=== PATIENT | female | born 1960 | race Caucasian/White ===

== ENCOUNTER 2018-12-15 15:18 | Inpatient (IN) | payer MEDICARE, OTHER ==
[~2018-12-15] VITALS: Ht 172.7 cm; Wt 89.8 kg
[2018-12-15] MEDS ORDERED: HYDR-3028 PO (15:59)
[2018-12-15] MEDS ORDERED: LEVE500T9 PO (15:59)
[2018-12-15] MEDS ORDERED: OXCA300T4 PO (15:59)
[2018-12-15] MEDS ORDERED: CARI1.5C PO (16:00)
[2018-12-15] MEDS ORDERED: LAMO200T2 PO (16:00)
[2018-12-15] MEDS ORDERED: LITH150C PO (16:00)
[2018-12-15] MEDS ORDERED: LAMO150T PO (16:00)
[2018-12-15] MEDS ORDERED: ZIPR20CA2 PO (16:00)
[2018-12-15] MEDS ORDERED: PERP4TAB11 PO (16:00)
[2018-12-15 16:39] VITALS: BP 101/57
[2018-12-15] MEDS ORDERED: MAG HYDROX/AL HYDROX/SIMETH 30 ML UDC PO PRN (17:00)
[2018-12-15] MEDS ORDERED: BLOOD SUGAR DIAGNOSTIC 1 EACH STRIP IN ONE (17:00)
[2018-12-15] MEDS ORDERED: ACETAMINOPHEN 325 MG TABLET PO PRN (17:00)
[2018-12-15] MEDS ORDERED: MAGNESIUM HYDROXIDE 30 ML UDC PO PRN (17:00)
[2018-12-15 18:17] VITALS: BP 124/87
--- NOTE | 2018-12-15 18:19 | NUR ---
GPS/RN-NOTES ADMITTED 58 YEARS OLD FEMALE PATIENT FROM [facility]. DR. 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 PATIENT ON 5150 HOLD FOR GD ADULT. UNABLE TO DO FACE TO FACE ASSESSMENT DUE TO PATIENT WAS TOO SLEEPY AND REFUSED TO ANSWER SOME QUESTIONS. STATED" LEAVE ME ALONE LET ME SLEEP ,I'M TOO TIRED". PATIENT A/O X4 AMBULATORY WITH ASSISTANCE.HOLD WAS UNABLE TO VERIFY WITH THE PATIENT DUE TO HER BEHAVIOR AT THIS TIME. PATIENT'S RIGHT WAS GIVEN TO THE PATIENT. FULL BODY ASSESSMENT AND MRSA SWAB NOT DONE DUE TO PATIENT REFUSED AND UNCOOPERATIVE DURING ADMISSION PROCESS. PATIENT REFUSED TO SIGN ADMISSION PAPERS. NO FAMILY TO NOTIFY ON THE ADMISSION. WILL ENDORSE TO INCOMING NURSE FOR CONTINUITY OF THE ADMISSION PROCESS AND CARE.
[2018-12-15] MEDS: OXCARBAZEPINE 150 MG TABLET PO SCH (18:30)
[2018-12-15] MEDS: LEVETIRACETAM (250 MG) 250 MG TABLET PO SCH ×2 (18:30→21:33)
--- NOTE | 2018-12-15 18:51 | NUR ---
GPS/RN-NOTES PATIENT REFUSED KEPPRA 500MG P.O AND TRILEPTAL 300MG P.O DESPITE EXPLANATIONS RISK AND BENEFITS. STATED" I DON'T TAKE THOSE MEDICATIONS". OFFERED X3 STILL REFUSED .CHARGE NURSE AWARE.
--- NOTE | 2018-12-15 19:25 | NUR ---
GPS/RN-NOTES PATIENT REFUSED PICTURES AND REFUSED BLOOD SUGAR CHECK DESPITE EXPLANATIONS RISK AND BENEFITS. PATIENT GETS ANGRY AND ARGUMENTATIVE.
--- NOTE | 2018-12-15 19:30 | NUR ---
GPS RN NOTES RECEIVED RESTING COMFORTABLY ON BED,ALERT,ORIENTED X1-2,ABLE TO VERBALIZED.NEW ADMIT FROM [facility],DX PSYCHOSIS/DEPRESSION.NOTED LIMITED VERBAL RESPONSE.ATTEMPT BODY CHECK BUT STILL REFUSED.WILL CONTINUE TO MONITOR BEHAVIOR AND MANAGE ACCORDINGLY.
[2018-12-15 20:00] VITALS: BP 130/57
[2018-12-15 20:53] VITALS: BP 130/57
[2018-12-15] MEDS: LamoTRIgine 100 MG TABLET PO SCH (21:33)
--- NOTE | 2018-12-16 06:00 | NUR ---
GPS RN NOTES HAD SHOWER THIS TIME,WITH STANDBY ESCORT OUTSIDE.SLEPT WELL AT NIGHT.
[2018-12-16 07:12] LABS: ALBUMIN 3.3 g/dL (3.4-5.0); BILIRUBIN,TOTAL 0.2 mg/dL (0.2-1.0); CALCIUM, SERUM 9.7 mg/dL (8.5-10.1); POTASSIUM 4.1 mmol/L (3.5-5.1); TOTAL PROTEIN, SERUM 6.5 g/dL (6.4-8.2)
[2018-12-16 07:14] LABS: CHOLESTEROL 183 mg/dL (<200); HDL CHOLESTEROL 50 mg/dL (40-60); LDL 117 mg/dL (0-99); TRIGLYCERIDES 124 mg/dL (30-150)
[2018-12-16 08:00] VITALS: BP 147/84
--- NOTE | 2018-12-16 08:15 | NUR ---
GPS/RN SPOKE WITH CORRIE FROM PHARM AND NOTIFIED PATIENT TRILEPTAL DOSE IS NOT COMPLETE IN OMNICELL AND TO REFILL THE MEDICATION PLEASE, PER DOROTEOHI WILL DO.
[2018-12-16] MEDS: LEVETIRACETAM (250 MG) 250 MG TABLET PO SCH ×2 (08:47→21:27)
[2018-12-16] MEDS: LamoTRIgine 25 MG TABLET PO SCH (08:47)
[2018-12-16] MEDS: OXCARBAZEPINE 150 MG TABLET PO SCH ×4 (09:00→16:34)
--- NOTE | 2018-12-16 09:57 | NUR ---
GPS/RN SPOKE WITH STEPHEN FROM PHARM AND REMINDED HER REGARDING PATIENT TRILEPTAL DUE AT 0900 AND STILL NOT REFILLED IN OMNICELL. PER STEPHEN SHE WILL SEND THE TECH UP TO REFILL.
--- NOTE | 2018-12-16 10:27 | NUR ---
GPS/RN PATIENT REFUSED 0900 TRILEPTAL DOSE, OFFERED X 3 WITH RISKS AND BENEFITS EXPLAINED CONTINUE TO REFUSE, PER PATIENT IT MAKES HER SUICIDAL AND SHE DOES NOT WANT TO TAKE IT ANYMORE. NOTIFIED.
[2018-12-16] MEDS: ESCITALOPRAM OXALATE (10 MG) 10 MG TABLET PO SCH ×2 (10:30→11:57)
--- NOTE | 2018-12-16 12:05 | NUR ---
GPS/RN PATIENT REFUSED LEXAPRO 10MG TAB PO OFFERED X 3 WITH RISKS AND BENEFITS EXPLAINED CONTINUE TO REFUSE.
--- NOTE | 2018-12-16 15:50 | NUR ---
GPS/RN SPOKE WITH DR ORTIZ AND NOTIFIED PATIENT REFUSED EKG TO BE DONE, OFFERED X 3 WITH RISKS AND BENEFITS EXPLAINED CONTINUE TO REFUSE AND ALSO MADE SURE WITH DR ORTIZ IF OKAY TO GIVE GEODON, PER DR ORTIZ OK TO GIVE GEODON.
[2018-12-16 16:00] VITALS: BP 162/95
[2018-12-16] MEDS: ZIPRASIDONE 20 MG CAPSULE PO SCH (16:30)
[2018-12-16] MEDS: LORAZEPAM 0.5 MG TABLET PO PRN (19:49)
--- NOTE | 2018-12-16 19:52 | NUR ---
GPS RN NOTES: PT. VERY AGGRESSIVE, ANXIOUS , HYPERVERBAL, YELLING ,SCREAMING ,NOT FOLLOWING ANY REDIRECTIONS ,PACING IN ROOM HALLWAY ATIVAN 1 MG PO PRN GIVEN , WILL CONTINUE TO MONITOR.
[2018-12-16 20:30] VITALS: BP 155/86
[2018-12-16] MEDS: LITHIUM CARBONATE (300 MG CAP) 300 MG CAPSULE PO SCH (21:00)
[2018-12-16] MEDS: LamoTRIgine 100 MG TABLET PO SCH (21:28)
--- NOTE | 2018-12-16 22:00 | NUR ---
GPS RN NOTES: PT. REFUSED NIGHT MEDS LITIHUM 300 MG PO, ENCOURAGED X 3 EXPLINED RISKS AND BENEFITS , PT. STRONGLY REFUSED, PER PT. I DON'T WANTS TAKING THIS MEDS.
[2018-12-17 08:00] VITALS: BP 138/76
[2018-12-17] MEDS: ZIPRASIDONE 20 MG CAPSULE PO SCH ×2 (08:22→16:53)
[2018-12-17] MEDS: LEVETIRACETAM (250 MG) 250 MG TABLET PO SCH ×2 (08:22→21:09)
[2018-12-17] MEDS: LamoTRIgine 25 MG TABLET PO SCH (08:23)
[2018-12-17] MEDS: ESCITALOPRAM OXALATE (10 MG) 10 MG TABLET PO SCH (08:33)
[2018-12-17] MEDS: OXCARBAZEPINE 150 MG TABLET PO SCH ×2 (08:34→16:58)
[2018-12-17] MEDS: LITHIUM CARBONATE (300 MG CAP) 300 MG CAPSULE PO SCH ×2 (08:34→21:00)
[2018-12-17] MEDS: MENTHOL/CETYLPYRD (CEPACOL) 1 LOZ LOZENGE PO PRN ×3 (15:27→19:45)
[2018-12-17 16:00] VITALS: BP 141/91
[2018-12-17] MEDS: PROPRANOLOL HCL 10 MG TABLET PO SCH (16:53)
[2018-12-17 20:00] VITALS: BP 133/75
[2018-12-17] MEDS: LamoTRIgine 100 MG TABLET PO SCH (21:09)
[2018-12-18 08:00] VITALS: BP 148/92
[2018-12-18] MEDS: LEVETIRACETAM (250 MG) 250 MG TABLET PO SCH ×2 (08:41→21:25)
[2018-12-18] MEDS: ZIPRASIDONE 20 MG CAPSULE PO SCH ×2 (08:41→16:51)
[2018-12-18] MEDS: LamoTRIgine 25 MG TABLET PO SCH (08:41)
[2018-12-18] MEDS: PROPRANOLOL HCL 10 MG TABLET PO SCH ×3 (08:42→16:50)
[2018-12-18] MEDS: ESCITALOPRAM OXALATE (10 MG) 10 MG TABLET PO SCH (08:45)
[2018-12-18] MEDS: LITHIUM CARBONATE (300 MG CAP) 300 MG CAPSULE PO SCH ×2 (08:45→21:26)
[2018-12-18] MEDS: OXCARBAZEPINE 150 MG TABLET PO SCH ×2 (08:46→16:51)
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
[2018-12-18 16:00] VITALS: BP 142/96
[2018-12-18 20:16] VITALS: BP 143/90
[2018-12-18] MEDS: LamoTRIgine 100 MG TABLET PO SCH (21:26)
[2018-12-19 08:00] VITALS: BP 151/89
[2018-12-19] MEDS: PROPRANOLOL HCL 10 MG TABLET PO SCH ×3 (08:46→16:50)
[2018-12-19] MEDS: ZIPRASIDONE 20 MG CAPSULE PO SCH ×2 (08:46→16:50)
[2018-12-19] MEDS: LEVETIRACETAM (250 MG) 250 MG TABLET PO SCH ×2 (08:47→21:13)
[2018-12-19] MEDS: OXCARBAZEPINE 150 MG TABLET PO SCH ×2 (08:47→16:50)
[2018-12-19] MEDS: ESCITALOPRAM OXALATE (10 MG) 10 MG TABLET PO SCH (08:47)
[2018-12-19] MEDS: LamoTRIgine 25 MG TABLET PO SCH (08:47)
[2018-12-19] MEDS: LITHIUM CARBONATE (300 MG CAP) 300 MG CAPSULE PO SCH ×2 (08:47→21:13)
--- NOTE | 2018-12-19 10:52 | NUR ---
INITIAL DISCHARGE PLAN: The pt. is currently experiencing homelessness and stated that she would like assistance with getting places at [facility]. [[address] [address]; [phone]] or [facility] [[address] [place] [address]; [phone]]. CARA will help form a safe and proper discharge in collaboration with
--- NOTE | 2018-12-19 13:50 | NUR ---
RN NOTE: PATIENT STATED THAT SHE HAD BEEN TAKING PROPRANOLOL FOR HER HEART AND LAMICTAL FOR SEIZURES FOR ABOUT 7 YEARS NOW.
--- NOTE | 2018-12-19 14:49 | NUR ---
RN NOTE: IN THE MORNING AFTER THE PATIENT HAD TAKEN HER LITHIUM, PATIENT STATED THAT SHE THINKS SHE GOT A REACTION FROM THE MEDICATION. I NOTICED MINOR REDNESS ON HER LEFT ARM. INFORMED DR ORTIZ AND CHUCK WEBB ABOUT IT. WHEN CHUCK WEBB WENT TO ASSESS PATIENT, HE STATED IT DOES NOT LOOK LIKE A REACTION. LATER, PATIENT KEPT COMPLAINING THAT SHE HAD STOMACH PAIN AND WAS DIZZY AND NAUSEOUS. I CHECKED THE PATIENT'S VITALS WITH THE CN AND VSS. PATIENT STATED THAT ALL THIS IS BECAUSE SHE IS TAKING LITHIUM. I TOLD HER IF THE LITHIUM IS MAKING HER SICK, TO REFUSE THE MEDICATION AND I WILL ALSO INFORM THE DOCTOR. PATIENT TOLD ME THAT IM NOT THE DOCTOR AND I CANT MAKE THAT CALL AND SHE WILL CONTINUE TO TAKE LITHIUM EVEN IF IT MAKES HER SICK.
[2018-12-19 16:00] VITALS: BP 148/92
[2018-12-19 20:04] VITALS: BP 100/52
[2018-12-19] MEDS: LamoTRIgine 100 MG TABLET PO SCH (21:13)
[2018-12-20 08:00] VITALS: BP 123/65
[2018-12-20] MEDS: LEVETIRACETAM (250 MG) 250 MG TABLET PO SCH ×2 (08:20→21:39)
[2018-12-20] MEDS: LITHIUM CARBONATE (300 MG CAP) 300 MG CAPSULE PO SCH ×2 (08:20→21:39)
[2018-12-20] MEDS: MENTHOL/CETYLPYRD (CEPACOL) 1 LOZ LOZENGE PO PRN (08:20)
[2018-12-20] MEDS: OXCARBAZEPINE 150 MG TABLET PO SCH ×2 (08:21→16:37)
[2018-12-20] MEDS: PROPRANOLOL HCL 10 MG TABLET PO SCH ×3 (08:21→16:39)
[2018-12-20] MEDS: ESCITALOPRAM OXALATE (10 MG) 10 MG TABLET PO SCH (08:21)
[2018-12-20] MEDS: LamoTRIgine 100 MG TABLET PO SCH ×2 (08:22→21:39)
[2018-12-20] MEDS: ZIPRASIDONE 20 MG CAPSULE PO SCH ×2 (08:22→16:37)
--- NOTE | 2018-12-20 15:03 | NUR ---
SW called at [facility] [[address] [address]; [phone]] and left a voicemail stating that the SW would like to connect the pt to their services and asked for a call back.
--- NOTE | 2018-12-20 15:04 | NUR ---
SW called [facility] [[address], [place] [address]; [phone]] and left a voicemail stating that the SW would like to have the pt get connected to their services and stated that a referral will be faxed over.
--- NOTE | 2018-12-20 15:17 | NUR ---
CARA faxed a referral to [facility] to the fax number: [phone].
[2018-12-20 21:45] VITALS: BP 124/70
[2018-12-21] MEDS: ZIPRASIDONE 20 MG CAPSULE PO SCH ×2 (08:47→16:18)
[2018-12-21] MEDS: ESCITALOPRAM OXALATE (10 MG) 10 MG TABLET PO SCH (08:48)
[2018-12-21] MEDS: LITHIUM CARBONATE (300 MG CAP) 300 MG CAPSULE PO SCH ×3 (08:48→16:17)
[2018-12-21] MEDS: LEVETIRACETAM (250 MG) 250 MG TABLET PO SCH ×2 (08:49→20:19)
[2018-12-21] MEDS: OXCARBAZEPINE 150 MG TABLET PO SCH ×2 (08:50→16:17)
[2018-12-21] MEDS: PROPRANOLOL HCL 10 MG TABLET PO SCH ×3 (08:50→16:19)
[2018-12-21] MEDS: LamoTRIgine 100 MG TABLET PO SCH ×2 (08:51→21:05)
[2018-12-21 09:15] VITALS: BP 128/84
--- NOTE | 2018-12-21 09:42 | NUR ---
CARA called [facility] ([phone]) and was told by Mini that they are at full capacity at the time and that they do not have any openings and the pt does not have an assessment at 8AM the following morning.
--- NOTE | 2018-12-21 09:43 | NUR ---
CARA called [facility] ([phone]) and left a voicemail message stating that the SW would like to inquire about the admissions process for one of her patients.
--- NOTE | 2018-12-21 09:44 | NUR ---
CARA called [facility] [[address], [place] [address]; [phone]] and was told that the referral was sent to the telephonic case manager of the facility and that he would review it and give the SW a call back.
--- NOTE | 2018-12-21 09:46 | NUR ---
CARA conducted a substance abuse intervention for the pt due to her history of alcohol abuse.
--- NOTE | 2018-12-21 09:46 | NUR ---
CARA called the [facility] ([phone]) and left a message stating that the would like more information regarding their admissions process and would like a call back.
--- NOTE | 2018-12-21 09:48 | NUR ---
CARA called [facility] ([phone]) and spoke to Vicki Paz who stated that she can help connect the pt to a resource such as the [facility] who can assess the pt and connect her to services. She stated that the [facility] Access Line Number is [phone].
[2018-12-21] MEDS: POLYETHYLENE GLYCOL 3350 17 GM POWD.PACK PO PRN (12:52)
--- NOTE | 2018-12-21 12:52 | NUR ---
RN NOTE: PATIENT C/O CONSTIPATION, PRN MIRALAX GIVEN
--- NOTE | 2018-12-21 14:29 | NUR ---
GROUP NOTE Goal: Patient will attend group being held today from 11AM-11:45AM in the activities room and participate and/or actively listen to peers and be respectful. Intervention: SW invited patient to attend group session with peers regarding their support system. SW respected patient�s self-determination and will continue to invite patient to group. Response: Patient presented laying on her bed and speaking on the phone. Patient declined to participate in today�s group social secretary session, stating, "I don't want to go, I'm on the phone". Plan: Patient will be invited to attend next social secretary group session held.
[2018-12-21 16:00] VITALS: BP 109/53
[2018-12-21 20:22] VITALS: BP 95/70
[2018-12-22] MEDS: ZOLPIDEM TARTRATE 5 MG TABLET PO PRN ×2 (01:00→21:39)
[2018-12-22 08:00] VITALS: BP 128/60
[2018-12-22] MEDS: LITHIUM CARBONATE (300 MG CAP) 300 MG CAPSULE PO SCH ×3 (08:11→16:03)
[2018-12-22] MEDS: ESCITALOPRAM OXALATE (10 MG) 10 MG TABLET PO SCH (08:11)
[2018-12-22] MEDS: ZIPRASIDONE 20 MG CAPSULE PO SCH ×2 (08:11→16:03)
[2018-12-22] MEDS: OXCARBAZEPINE 150 MG TABLET PO SCH ×2 (08:12→16:03)
[2018-12-22] MEDS: LamoTRIgine 100 MG TABLET PO SCH ×2 (08:12→21:39)
[2018-12-22] MEDS: LEVETIRACETAM (250 MG) 250 MG TABLET PO SCH ×2 (08:12→21:38)
[2018-12-22] MEDS: PROPRANOLOL HCL 10 MG TABLET PO SCH ×3 (08:13→16:03)
--- NOTE | 2018-12-22 10:39 | NUR ---
CARA called [facility] ([phone]) and spoke to Nini who stated that the pts referral form is currently being reviewed at this time.
[2018-12-22 16:00] VITALS: BP 149/70
[2018-12-22 20:00] VITALS: BP 126/73
[2018-12-23 08:00] VITALS: BP 125/80
[2018-12-23] MEDS: PROPRANOLOL HCL 10 MG TABLET PO SCH ×3 (09:00→17:00)
[2018-12-23] MEDS: OXCARBAZEPINE 150 MG TABLET PO SCH ×2 (09:01→17:05)
[2018-12-23] MEDS: ESCITALOPRAM OXALATE (10 MG) 10 MG TABLET PO SCH (09:01)
[2018-12-23] MEDS: POLYETHYLENE GLYCOL 3350 17 GM POWD.PACK PO PRN (09:01)
[2018-12-23] MEDS: ZIPRASIDONE 20 MG CAPSULE PO SCH ×2 (09:01→17:02)
[2018-12-23] MEDS: LITHIUM CARBONATE (300 MG CAP) 300 MG CAPSULE PO SCH ×3 (09:01→17:02)
[2018-12-23] MEDS: LamoTRIgine 100 MG TABLET PO SCH ×2 (09:02→21:30)
[2018-12-23] MEDS: LEVETIRACETAM (250 MG) 250 MG TABLET PO SCH ×2 (09:02→21:30)
--- NOTE | 2018-12-23 12:05 | NUR ---
CARA called Candelaria Xiong ([phone]), [facility], and informed her that the pt will be discharged as soon as transportation is available and that the pt will need [facility] placement in [place].
--- NOTE | 2018-12-23 15:25 | NUR ---
Candelaria Xiong ([phone]), [facility], called the SW and stated that the pt cannot be placed in a fdc because she is banned from one of them and the other one does not have a bed. She stated that the SW should call the [facility] and they can send a referral for the pt to [place] for dual diagnosis.
--- NOTE | 2018-12-23 15:26 | NUR ---
SW called [facility] and spoke to Luis ([phone]) and stated that she would like to refer a pt. Luis stated that the SW would have to fill out the referral and send it back.
[2018-12-23 16:00] VITALS: BP 130/77
--- NOTE | 2018-12-23 16:06 | NUR ---
CARA sent a fax to [facility] to the fax number: [phone].
[2018-12-23 20:00] VITALS: BP 137/80
[2018-12-23] MEDS: MENTHOL/CETYLPYRD (CEPACOL) 1 LOZ LOZENGE PO PRN (21:30)
[2018-12-24 08:00] VITALS: BP 141/77
[2018-12-24] MEDS: LITHIUM CARBONATE (300 MG CAP) 300 MG CAPSULE PO SCH ×3 (09:17→17:55)
[2018-12-24] MEDS: ESCITALOPRAM OXALATE (10 MG) 10 MG TABLET PO SCH (09:18)
[2018-12-24] MEDS: PROPRANOLOL HCL 10 MG TABLET PO SCH ×3 (09:18→17:00)
[2018-12-24] MEDS: LamoTRIgine 100 MG TABLET PO SCH ×2 (09:18→21:12)
[2018-12-24] MEDS: OXCARBAZEPINE 150 MG TABLET PO SCH ×2 (09:19→17:55)
[2018-12-24] MEDS: LEVETIRACETAM (250 MG) 250 MG TABLET PO SCH ×2 (09:19→21:12)
[2018-12-24] MEDS: ZIPRASIDONE 20 MG CAPSULE PO SCH ×2 (09:19→17:54)
[2018-12-24] MEDS: MENTHOL/CETYLPYRD (CEPACOL) 1 LOZ LOZENGE PO PRN (10:45)
--- NOTE | 2018-12-24 10:48 | NUR ---
GIVEN CEPACOL FOR COUGH.
--- NOTE | 2018-12-24 11:37 | NUR ---
PT. REQUESTING TYLENOL FOR STUFFY HEAD.
[2018-12-24] MEDS: LORAZEPAM 0.5 MG TABLET PO PRN (14:24)
--- NOTE | 2018-12-24 14:43 | NUR ---
GIVEN ATIVAN FOR NERVES.
[2018-12-24] MEDS ORDERED: SALINE NASAL SPRAY 0.65% 1 BOTTLE BOTTLE NS PRN (15:00)
[2018-12-24 16:00] VITALS: BP 111/69
--- NOTE | 2018-12-24 16:07 | NUR ---
OCEAN NASAL SPRAY INSTILLED.
--- NOTE | 2018-12-24 17:56 | NUR ---
INDERAL HELD PULSE 53.
--- NOTE | 2018-12-24 19:25 | NUR ---
RN INITIAL NOTES: RECEIVED REPORT FROM ASHLEIGH Alexandra RN. PT IN BED, SLEEPING, APPEARS CALM AND COMFORTABLE. AROUSES TO TACTILE STIMULI. WOKE UP, A/O X 3, MEDICATION COMPLIANT PER REPORT. CONTINENT, AMBULATORY, SELF CARE, DISORGANIZED, REFUSED SKIN CHECK. PER REPORT, PT FEELING ANNOYED BECAUSE OF NO TRANSPORTATION TO [facility] UPON GOING HOME. PT DENIES ANY SI/HI. SAFETY PRECAUTIONS FOR FALL INITIATED, SIDE RAILS UP X2 FOR SAFETY, WILL CONTINUE MONITORING PT [id number] FOR SAFETY AND ANY CHANGES IN BEHAVIOR.
[2018-12-24 20:00] VITALS: BP 120/72
[2018-12-25 08:00] VITALS: BP 109/69
[2018-12-25] MEDS: PROPRANOLOL HCL 10 MG TABLET PO SCH ×3 (09:00→17:04)
[2018-12-25] MEDS: LEVETIRACETAM (250 MG) 250 MG TABLET PO SCH ×2 (09:23→20:21)
[2018-12-25] MEDS: OXCARBAZEPINE 150 MG TABLET PO SCH ×2 (09:23→17:04)
[2018-12-25] MEDS: LITHIUM CARBONATE (300 MG CAP) 300 MG CAPSULE PO SCH ×3 (09:24→17:04)
[2018-12-25] MEDS: ZIPRASIDONE 20 MG CAPSULE PO SCH ×2 (09:24→17:03)
[2018-12-25] MEDS: ESCITALOPRAM OXALATE (10 MG) 10 MG TABLET PO SCH (09:24)
[2018-12-25] MEDS: LamoTRIgine 100 MG TABLET PO SCH ×2 (09:24→21:28)
[2018-12-25 16:00] VITALS: BP 100/60
[2018-12-25 20:00] VITALS: BP 119/62
[2018-12-25] MEDS: LORAZEPAM 0.5 MG TABLET PO PRN (20:22)
[2018-12-26 08:00] VITALS: BP 107/64
[2018-12-26] MEDS: ESCITALOPRAM OXALATE (10 MG) 10 MG TABLET PO SCH (08:40)
[2018-12-26] MEDS: LamoTRIgine 100 MG TABLET PO SCH (08:40)
[2018-12-26 08:41] VITALS: BP 107/64
[2018-12-26] MEDS: LITHIUM CARBONATE (300 MG CAP) 300 MG CAPSULE PO SCH (08:41)
[2018-12-26] MEDS: PROPRANOLOL HCL 10 MG TABLET PO SCH (08:41)
[2018-12-26] MEDS: ZIPRASIDONE 20 MG CAPSULE PO SCH (08:41)
[2018-12-26] MEDS: LEVETIRACETAM (250 MG) 250 MG TABLET PO SCH (08:41)
[2018-12-26] MEDS: OXCARBAZEPINE 150 MG TABLET PO SCH (08:41)
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
--- NOTE | 2018-12-26 10:50 | NUR ---
CARA called [facility] [place] located at [address] [place] [address]; and reserved a room for the pt.
--- NOTE | 2018-12-26 10:55 | NUR ---
CARA called Dr. Simone Zimmerman ([phone]) and arranged an appointment for the pt on 12/28/18 at 11AM.
--- NOTE | 2018-12-26 12:28 | NUR ---
GPS RN NOTES PATIENT FOR DISCHARGE TODAY. TO DISCHARGE HOME TO A HOTEL AT [facility] PER . DISCHARGE TEACHING AND INSTRUCTIONS PROVIDED TO PATIENT AND VERBALIZED UNDERSTANDING. ALL BELONGINGS GIVEN TO PATIENT, NO REPORT OF MISSING INVENTORY. WRITTEN PRESCRIPTIONS PROVIDED TO PATIENT. PATIENT MADE AWARE OF FOLLOW-UP APPOINTMENTS AND PHYSICIAN INFORMATION. PATIENT LEFT UNIT AMBULATORY IN STABLE CONDITION. NO ACUTE DISTRESS. NO CHANGES IN LOC NOTED. DENIES ANY PAIN OR DISCOMFORT. NO NEW SKIN BREAKDOWN NOTED ON DISCHARGE. PATIENT ACCOMPANIED BY NURSING STAFF TO PARKING LOT. LEFT HOSPITAL PREMISES VIA TAXI. MD AWARE OF DISCHARGE.
--- NOTE | 2018-12-26 13:59 | NUR ---
Discharge Note: Pt was discharged to [place] [address] in [facility] located at [address] [place] [address] and pt was placed on a waiting list for a homeless assisted per [facility]. Pt was provided with a taxi voucher to the [facility] [employer] located at [address] [place] [address] and was discharged at 12:30pm. Upon discharge, the pt appeared to be in a euthymic mood and presented with a calm affect. Pt denied both suicidal and homicidal ideation as well as auditory and visual hallucinations. Pt was provided with three substance abuse referrals that are listed below. Pt will continue to be under the care of her psychiatrist, Dr. Simone Zimmerman, located at [address] [place] [address]; ([phone]); a fax of records was sent to: [phone]. Pt has an appointment on 12/28/18 at 11AM. Pt will also continue to be under the care of her third rigger, Dr. Young, located at [address] [place] [address]; ([phone]). [facility]errals: [facility] [place] [address] [place] [address] [facility] [address], [place] [address] [facility] [address], [place] [address]
== END 2018-12-26 12:30 | disposition home or self-care (01) | DRG 885 ==
LOC: GPS 15:18
PROVIDERS: ADMIT Psychiatry & Neurology Psychiatry; ATTEND Nurse Practitioner Acute Care
DX: F31.5 Bipolar disorder, current episode depressed, severe, with psychotic features (principal); F41.9 Anxiety disorder, unspecified; G40.909 Epilepsy, unspecified, not intractable, without status epilepticus; K21.9 Gastro-esophageal reflux disease without esophagitis; I10 Essential (primary) hypertension; M19.90 Unspecified osteoarthritis, unspecified site; Z88.0 Allergy status to penicillin; D63.8 Anemia in other chronic diseases classified elsewhere; E78.1 Pure hyperglyceridemia; K59.00 Constipation, unspecified
CPT/HCPCS: 36415; 80053-TC; 80061-TC; 84443-TC